=== PATIENT | female | born 1970 | race Caucasian/White ===

== ENCOUNTER 2018-01-17 11:50 | Observation (INO) ==
[2018-01-17] MEDS ORDERED: 0.9 % Sodium Chloride 1,000 ML ONE (12:34)
--- NOTE | 2018-01-17 12:34 | Emergency Department Note ---
Disposition Clinical Impression: Suicide attempt, Bradycardia Drug ingestion Qualifiers: Encounter type: initial encounter Injury intent: intentional self-harm Qualified Code(s): T50.902A - Poisoning by unspecified drugs, medicaments and biological substances, intentional self-harm, initial encounter Disposition: Admitted As Inpatient Condition: Good Referrals: NONE,PCP [Primary Care Provider] - Forms: ED Satisfaction Letter Time of Disposition: 16:36 General Adult HPI - General Chief complaint: ED Psychiatric Symptoms Stated complaint: SI/OD Time Seen by Provider: 01/17/18 11:59 - History of Present Illness Pain Scale: 0 - Related Data Home Medications Medication Instructions Recorded Confirmed Atorvastatin [Lipitor] 40 mg PO HS 01/17/18 01/17/18 Fenofibrate [Tricor] 54 mg PO DAILY 01/17/18 01/17/18 HydrOXYzine 10 mg PO BID PRN 01/17/18 01/17/18 Omeprazole [PriLOSEC] 40 mg PO DAILY 01/17/18 01/17/18 Pantoprazole Sodium [Protonix] 40 mg PO BID 01/17/18 01/17/18 Polyethylene Glycol 3350 [MiraLAX 17 gm PO DAILY PRN 01/17/18 01/17/18 bowel prep] Tizanidine HCl 4 mg PO BID PRN 01/17/18 01/17/18 Allergies Allergy/AdvReac Type Severity Reaction Status Date / Time No Known Allergies Allergy Verified 01/17/18 13:53 Past Medical History - Past Medical History Medical history: Reports: arthritis, GERD, hyperlipidemia, other Psychiatric history: Reports: anxiety, depression [employer]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 - Social History Smoking Status: Current every day smoker Smokeless Tobacco Status: No Alcohol use: Reports: occasionally Drug use: Reports: none Course Vital Signs Temperature 99.1 F 01/17/18 11:54 Pulse Rate 47 01/17/18 11:54 Respiratory Rate 16 01/17/18 11:54 Blood Pressure 133/61 01/17/18 11:54 O2 Sat by Pulse Oximetry 94 01/17/18 11:54 Temperature 99.1 F 01/17/18 12:24 Pulse Rate 46 01/17/18 15:22 Respiratory Rate 16 01/17/18 15:22 Blood Pressure 80/40 01/17/18 15:22 O2 Sat by Pulse Oximetry 100 01/17/18 15:22 Oxygen Delivery Oxygen Delivery Oximizer Medical Decision Making - Lab Data Result diagrams: 01/17/18 12:58 01/17/18 12:58 Lab Results 01/17/18 01/17/18 01/17/18 Range/Units 12:39 12:58 12:58 WBC 10.8 (4.3-11.1) K/mcL RBC 4.62 (3.82-4.97) M/mcL Hgb 13.8 (11.5-15.4) g/dL Hct 41.2 (35.3-44.9) % MCV 89.2 (83.0-100.0) fL MCH 29.9 (28.0-33.3) pg MCHC 33.5 (31.6-35.5) g/dL RDW 12.5 (11.5-14.5) % Plt Count 278 (140-400) K/mcL MPV 10.5 (9.4-12.4) fL Immature Gran % 0.4 (0-4) % Seg Neutrophils % 71.6 % Lymphocytes % 23.3 % Monocytes % 3.8 % Eosinophils % 0.4 % Basophils % 0.5 % Neutrophils # 7.7 (1.6-8.9) K/mcL Lymphocytes # 2.5 (0.6-4.6) K/mcL Monocytes # 0.4 (0.0-1.3) K/mcL Eosinophils # 0.0 (0.0-0.6) K/mcL Basophils # 0.1 (0.0-0.2) K/mcL Sodium 136 (136-145) mEq/L Potassium 3.5 (3.5-5.1) mEq/L Chloride 105 (98-107) mEq/L Carbon Dioxide 21 L (23-29) mEq/L BUN 9 (6-20) mg/dL Creatinine 0.95 (0.60-1.20) mg/dL Est GFR ( Amer) > 60 (> 60) Est GFR (Non-Af Amer) > 60 (> 60) BUN/Creatinine Ratio 9 (6-26) Glucose 302 H (70-105) mg/dL Calculated Osmolality 292 (280-300) Calcium 9.2 (8.6-10.3) mg/dL Total Bilirubin 0.5 (0.3-1.0) mg/dL Direct Bilirubin 0.2 (0.0-0.2) mg/dL Indirect Bilirubin 0.3 (0.0-1.2) mg/dL AST 13 (13-39) Units/L ALT 11 (7-52) Units/L Alkaline Phosphatase 87 (34-104) Units/L Ammonia (16-53) mcmol/L Serum Total Protein 6.7 (6.4-8.9) g/dL Albumin 4.0 (3.5-5.7) g/dL Globulin 2.7 (2.4-3.5) g/dL Albumin/Globulin Ratio 1.5 (1.1-2.2) TSH 2.081 (0.340-5.600) mcIU/mL Urine Color (Yellow) Urine Clarity (Clear) Urine pH (5.0-8.0) pH Units Ur Specific [place] (1.010-1.025) Urine Protein (Neg-Trace) mg/dL Urine Glucose (UA) (Normal) mg/dL Urine Ketones (Negative) mg/dL Urine Blood (Negative) Urine Nitrite (Negative) Urine Bilirubin (Negative) Urine Urobilinogen (Normal) mg/dL Ur Leukocyte Esterase (Negative) Urine Microscopic RBC (0-3) per hpf Urine Microscopic WBC (0-3) per hpf Urine Bacteria (None-Few) per hpf Ur Culture Indicated? (NO) Urine Test (Negative) Salicylates < 2.5 L (15.0-30.0) mg/dL Urine Opiates Screen Negative (Jmlqwh=411) ng/mL Acetaminophen < 10 L (10-20) mcg/mL Ur Barbiturates Screen Negative (Cfftmd=144) ng/mL Ur Phencyclidine Scrn Negative (Cutoff=25) ng/mL Ur Amphetamines Screen Negative (Udjxbq=2264) ng/mL U Benzodiazepines Scrn Negative (Vpkswp=726) ng/mL Urine Cocaine Screen Negative (Cutoff= 300) ng/mL U Marijuana (THC) Screen Negative (Cutoff = 50) ng/mL Ur Drug Screen Interp See Below Ethyl Alcohol < 10 (Less than 10) mg/dL 01/17/18 01/17/18 01/17/18 Range/Units 12:58 13:34 13:34 WBC (4.3-11.1) K/mcL RBC (3.82-4.97) M/mcL Hgb (11.5-15.4) g/dL Hct (35.3-44.9) % MCV (83.0-100.0) fL MCH (28.0-33.3) pg MCHC (31.6-35.5) g/dL RDW (11.5-14.5) % Plt Count (140-400) K/mcL MPV (9.4-12.4) fL Immature Gran % (0-4) % Seg Neutrophils % % Lymphocytes % % Monocytes % % Eosinophils % % Basophils % % Neutrophils # (1.6-8.9) K/mcL Lymphocytes # (0.6-4.6) K/mcL Monocytes # (0.0-1.3) K/mcL Eosinophils # (0.0-0.6) K/mcL Basophils # (0.0-0.2) K/mcL Sodium (136-145) mEq/L Potassium (3.5-5.1) mEq/L Chloride (98-107) mEq/L Carbon Dioxide (23-29) mEq/L BUN (6-20) mg/dL Creatinine (0.60-1.20) mg/dL Est GFR ( Amer) (> 60) Est GFR (Non-Af Amer) (> 60) BUN/Creatinine Ratio (6-26) Glucose (70-105) mg/dL Calculated Osmolality (280-300) Calcium (8.6-10.3) mg/dL Total Bilirubin (0.3-1.0) mg/dL Direct Bilirubin (0.0-0.2) mg/dL Indirect Bilirubin (0.0-1.2) mg/dL AST (13-39) Units/L ALT (7-52) Units/L Alkaline Phosphatase (34-104) Units/L Ammonia 48 (16-53) mcmol/L Serum Total Protein (6.4-8.9) g/dL Albumin (3.5-5.7) g/dL Globulin (2.4-3.5) g/dL Albumin/Globulin Ratio (1.1-2.2) TSH (0.340-5.600) mcIU/mL Urine Color Dark Yellow (Yellow) Urine Clarity Cloudy A (Clear) Urine pH 5.5 (5.0-8.0) pH Units Ur Specific [place] 1.023 (1.010-1.025) Urine Protein 100 H (Neg-Trace) mg/dL Urine Glucose (UA) 250 H (Normal) mg/dL Urine Ketones Trace H (Negative) mg/dL Urine Blood Negative (Negative) Urine Nitrite Negative (Negative) Urine Bilirubin Small H (Negative) Urine Urobilinogen Normal (Normal) mg/dL Ur Leukocyte Esterase Trace H (Negative) Urine Microscopic RBC 0-3 (0-3) per hpf Urine Microscopic WBC 0-3 (0-3) per hpf Urine Bacteria Few (None-Few) per hpf Ur Culture Indicated? YES A (NO) Urine Test Negative (Negative) Salicylates (15.0-30.0) mg/dL Urine Opiates Screen (Kwdygj=163) ng/mL Acetaminophen (10-20) mcg/mL Ur Barbiturates Screen (Agjixl=323) ng/mL Ur Phencyclidine Scrn (Cutoff=25) ng/mL Ur Amphetamines Screen (Trlnop=8752) ng/mL U Benzodiazepines Scrn (Hlgarf=813) ng/mL Urine Cocaine Screen (Cutoff= 300) ng/mL U Marijuana (THC) Screen (Cutoff = 50) ng/mL Ur Drug Screen Interp Ethyl Alcohol (Less than 10) mg/dL Attestation Statement - Attestation Attestation: I, Antwan Staples DO, examined this patient [id number] and my medical decision-making was reviewed with Dr. Raymond Cali, Resident Physician. I agree with the documented findings, disposition and treatment plan as described except to the extent set forth below. Please see my progress notes for details. 47-year-old female presents emergency room with intentional overdose. Patient took a handful of her home medications. Medication list was collected and she is currently on fluoxetine Percocet and Zanaflex. She otherwise takes multivitamins. On arrival here her heart rate is in the 40s to 50s she wakes up easily but is somnolent. Pupils are pinpoint. She denies any other issues. She does disclose that she did the medication to attempt to kill herself. She has had this several times in the past. She denies any other issues this point. Head is atraumatic pupils are pinpoint but reactive extracted muscles appear to be intact she is speaking coherently but is slow to respond. Oropharynx is patent lungs are clear heart is regular but bradycardic. Abdomen is soft. No visible signs of trauma or injury to the extremities she does not have any visible signs of track vitale or other injury or etiology at this point. Medical evaluation will be completed with EKG chest x-ray KUB CBC chemistry along with urine drug screen Tylenol level aspirin level. Patient will most likely be admitted secondary to medical clearance. See detailed documentation of the physical exam, medical intervention, medical decision- making and disposition the resident physician's note. Poison control will be contacted 1500 Patient has slowly become bradycardic and hypotensive. 2 units of fluid were given. Patient will be provided with 0.4 of Narcan as well as 2 g of glucagon and 1 g of calcium. Patient has been admitted to the hospitalist but her blood pressure has waxed and waned. She still wakes up easily and converses without any issue. No other acute etiology noted at this time. Patient is stable. Admission process will be established hospitalist Dr. Kern was contacted and reviewed the case with him he has no other recommendations or concerns at this time. 1625 Patient has remained bradycardic and hypotensive after Narcan, glucagon, calcium has been given. A second liter of fluids was infused. Patient was started on maintenance fluid at this time. She has maintain the map between 55 and 65 throughout the entire treatment course. She still wakes up easily and converses with the family at the bedside. Patient will be admitted for continuation of management and observation.
[2018-01-17 13:01] LABS: Amphetamine Screen,Urine Negative ng/mL (Cutoff=1000); Barbiturate Screen,Urine Negative ng/mL (Cutoff=200); Benzodiazepines Screen,Urine Negative ng/mL (Cutoff=200); Cannabinoid Screen,Urine Negative ng/mL (Cutoff = 50); Cocaine Screen,Urine Negative ng/mL (Cutoff= 300); Opiate Screen,Urine Negative ng/mL (Cutoff=300); Phencyclidine Screen,Urine Negative ng/mL (Cutoff=25)
--- NOTE | 2018-01-17 13:05 | Emergency Department Note ---
Disposition Clinical Impression: Suicide attempt, Bradycardia Drug ingestion Qualifiers: Encounter type: initial encounter Injury intent: intentional self-harm Qualified Code(s): T50.902A - Poisoning by unspecified drugs, medicaments and biological substances, intentional self-harm, initial encounter Disposition: Admitted As Inpatient Condition: Good Psych HPI - General Chief Complaint: ED Psychiatric Symptoms Stated Complaint: SI/OD Time Seen by Provider: 01/17/18 11:59 Source: patient, family Limitations: altered mental status Nursing Notes Reviewed: Yes Vital Signs Reviewed: Yes - History of Present Illness HPI Narrative: 47-year-old female history of anxiety, depression, hyperlipidemia and GERD who presents to the ER with complaints of intentional ingestion and suicide. History is obtained from froylan. Reports roughly 2 hours prior to arrival he came to her house and found her altered and admitted that she took pills. She did this in an attempt to take the pain away from her divorce. Denies any other ingestions but is unsure exactly what she took. She took a cup full of all of her medications. No seizure-like activity. No vomiting. No chest pain or shortness of breath as well as abdominal pain here. Pt complaint: other Onset (ago): hour(s) History of similar episodes: No Improves with: none Worsens with: none Alleged intoxication: No Associated Psychiatric Symptoms: depression, suicidal ideation Associated symptoms: Reports: denies other symptoms Traumatic symptoms: denies traumatic injury Treatments prior to arrival: none - Related Data Home Medications Medication Instructions Recorded Confirmed Atorvastatin [Lipitor] 40 mg PO HS 01/17/18 01/17/18 Fenofibrate [Tricor] 54 mg PO DAILY 01/17/18 01/17/18 HydrOXYzine 10 mg PO BID PRN 01/17/18 01/17/18 Omeprazole [PriLOSEC] 40 mg PO DAILY 01/17/18 01/17/18 Pantoprazole Sodium [Protonix] 40 mg PO BID 01/17/18 01/17/18 Polyethylene Glycol 3350 [MiraLAX 17 gm PO DAILY PRN 01/17/18 01/17/18 bowel prep] Tizanidine HCl 4 mg PO BID PRN 01/17/18 01/17/18 Allergies Allergy/AdvReac Type Severity Reaction Status Date / Time No Known Allergies Allergy Verified 01/17/18 13:53 All systems ED: reviewed and negative except as stated. Cardiovascular: Denies: chest pain Respiratory: Denies: dyspnea Gastrointestinal: Denies: abdominal pain, nausea, vomiting Psychiatric: Reports: suicidal thoughts Past Medical History - Past Medical History Attestation: Yes The following information was validated with the patient. 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 - Social History Smoking Status: Current every day smoker Smokeless Tobacco Status: No Alcohol use: Reports: occasionally Drug use: Reports: none Physical Exam - General Limitations: altered mental status General appearance: lethargic - Head Head exam: atraumatic, normocephalic, normal inspection - Eye Eye exam: Present: normal appearance, miosis - ENT ENT exam: normal exam - Neck Neck exam: Present: normal inspection - Chest Chest inspection: Present: normal inspection, symmetric chest wall rise - Respiratory Respiratory exam: Present: normal lung sounds bilaterally - Cardiovascular Cardiovascular exam: Present: normal rhythm, bradycardia, normal heart sounds - Abdominal Exam Abdominal exam: Present: soft, Non-Tender. Absent: tenderness, distention, rigidity - Extremities Exam Extremities exam: Present: normal inspection, full ROM - Expanded Upper Extremity Exam Shoulder exam: Present: normal inspection, full ROM Arm exam: Present: normal inspection, full ROM Elbow exam: Present: normal inspection, full ROM Forearm/Wrist exam: Present: normal inspection, full ROM Hand exam: Present: normal inspection, full ROM - Expanded Lower Extremity Exam Hip/Pelvis exam: Present: normal inspection, full ROM Upper leg exam: Present: normal inspection, full ROM Knee exam: Present: normal inspection, full ROM Lower leg exam: Present: normal inspection, full ROM Ankle exam: Present: normal inspection, full ROM Foot/toe exam: Present: normal inspection, full ROM - Neurological Exam Neurological exam: Present: other (Somnolent. Arousable to verbal stimuli. Follows commands.) - Psychiatric Psychiatric exam: Present: suicidal ideation - Skin Skin exam: Present: warm, dry Course Course Narrative: Patient seen and examined. Vital signs reviewed. Plan for CT imaging of the head, EKG, chest x-ray, labs, discussion with poison control. She is bradycardic here but otherwise hemodynamically stable. - Reevaluation(s) Reevaluation #1: Patient did have an episode of hypotension. IV fluid bolus. Second liter ordered. Reevaluation #2: Remains bradycardic. Poison control recommended calcium and glucagon. Reevaluation #3: Continues to have a waxing and waning blood pressure. - Consultations Consultation #1: I spoke with poison control concerning this patient. Discussed her history exam and possible ingestions. Recommend medical management at this time. Atropine if she becomes bradycardic and hypotensive. Vital Signs Temperature 99.1 F 01/17/18 11:54 Pulse Rate 47 01/17/18 11:54 Respiratory Rate 16 01/17/18 11:54 Blood Pressure 133/61 01/17/18 11:54 O2 Sat by Pulse Oximetry 94 01/17/18 11:54 Temperature 99.1 F 01/17/18 12:24 Pulse Rate 56 01/17/18 16:37 Respiratory Rate 15 01/17/18 16:37 Blood Pressure 75/49 01/17/18 16:37 O2 Sat by Pulse Oximetry 98 01/17/18 16:37 Oxygen Delivery Oxygen Delivery Simple Mask Psych - MDM Narrative Medical decision making narrative: 47-year-old female presents with intentional ingestion. [place] slipped. Polysubstance ingestion. Presented bradycardic. EKG is sinus with normal intervals. CT head negative. Imaging otherwise unremarkable. Labs with no acute derangements. Urine drug screen negative. Admitted to the hospitalist service. Poison control did recommend to give calcium and glucagon in the event this could be a beta kaitlyn overdose. Her blood pressure has been variable. She arouses to verbal stimuli. She is admitted to the hospitalist service with eventual psychiatric consultation. - Lab Data Lab results reviewed: Yes I reviewed the patient's lab results. Result diagrams: 01/17/18 12:58 01/17/18 12:58 Lab Results 01/17/18 01/17/18 01/17/18 Range/Units 12:39 12:58 12:58 WBC 10.8 (4.3-11.1) K/mcL RBC 4.62 (3.82-4.97) M/mcL Hgb 13.8 (11.5-15.4) g/dL Hct 41.2 (35.3-44.9) % MCV 89.2 (83.0-100.0) fL MCH 29.9 (28.0-33.3) pg MCHC 33.5 (31.6-35.5) g/dL RDW 12.5 (11.5-14.5) % Plt Count 278 (140-400) K/mcL MPV 10.5 (9.4-12.4) fL Immature Gran % 0.4 (0-4) % Seg Neutrophils % 71.6 % Lymphocytes % 23.3 % Monocytes % 3.8 % Eosinophils % 0.4 % Basophils % 0.5 % Neutrophils # 7.7 (1.6-8.9) K/mcL Lymphocytes # 2.5 (0.6-4.6) K/mcL Monocytes # 0.4 (0.0-1.3) K/mcL Eosinophils # 0.0 (0.0-0.6) K/mcL Basophils # 0.1 (0.0-0.2) K/mcL Sodium 136 (136-145) mEq/L Potassium 3.5 (3.5-5.1) mEq/L Chloride 105 (98-107) mEq/L Carbon Dioxide 21 L (23-29) mEq/L BUN 9 (6-20) mg/dL Creatinine 0.95 (0.60-1.20) mg/dL Est GFR ( Amer) > 60 (> 60) Est GFR (Non-Af Amer) > 60 (> 60) BUN/Creatinine Ratio 9 (6-26) Glucose 302 H (70-105) mg/dL Calculated Osmolality 292 (280-300) Calcium 9.2 (8.6-10.3) mg/dL Total Bilirubin 0.5 (0.3-1.0) mg/dL Direct Bilirubin 0.2 (0.0-0.2) mg/dL Indirect Bilirubin 0.3 (0.0-1.2) mg/dL AST 13 (13-39) Units/L ALT 11 (7-52) Units/L Alkaline Phosphatase 87 (34-104) Units/L Ammonia (16-53) mcmol/L Serum Total Protein 6.7 (6.4-8.9) g/dL Albumin 4.0 (3.5-5.7) g/dL Globulin 2.7 (2.4-3.5) g/dL Albumin/Globulin Ratio 1.5 (1.1-2.2) TSH 2.081 (0.340-5.600) mcIU/mL Urine Color (Yellow) Urine Clarity (Clear) Urine pH (5.0-8.0) pH Units Ur Specific [place] (1.010-1.025) Urine Protein (Neg-Trace) mg/dL Urine Glucose (UA) (Normal) mg/dL Urine Ketones (Negative) mg/dL Urine Blood (Negative) Urine Nitrite (Negative) Urine Bilirubin (Negative) Urine Urobilinogen (Normal) mg/dL Ur Leukocyte Esterase (Negative) Urine Microscopic RBC (0-3) per hpf Urine Microscopic WBC (0-3) per hpf Urine Bacteria (None-Few) per hpf Ur Culture Indicated? (NO) Urine Test (Negative) Salicylates < 2.5 L (15.0-30.0) mg/dL Urine Opiates Screen Negative (Mamdlj=024) ng/mL Acetaminophen < 10 L (10-20) mcg/mL Ur Barbiturates Screen Negative (Arkxnk=649) ng/mL Ur Phencyclidine Scrn Negative (Cutoff=25) ng/mL Ur Amphetamines Screen Negative (Yharte=3686) ng/mL U Benzodiazepines Scrn Negative (Cxdagv=755) ng/mL Urine Cocaine Screen Negative (Cutoff= 300) ng/mL U Marijuana (THC) Screen Negative (Cutoff = 50) ng/mL Ur Drug Screen Interp See Below Ethyl Alcohol < 10 (Less than 10) mg/dL 01/17/18 01/17/18 01/17/18 Range/Units 12:58 13:34 13:34 WBC (4.3-11.1) K/mcL RBC (3.82-4.97) M/mcL Hgb (11.5-15.4) g/dL Hct (35.3-44.9) % MCV (83.0-100.0) fL MCH (28.0-33.3) pg MCHC (31.6-35.5) g/dL RDW (11.5-14.5) % Plt Count (140-400) K/mcL MPV (9.4-12.4) fL Immature Gran % (0-4) % Seg Neutrophils % % Lymphocytes % % Monocytes % % Eosinophils % % Basophils % % Neutrophils # (1.6-8.9) K/mcL Lymphocytes # (0.6-4.6) K/mcL Monocytes # (0.0-1.3) K/mcL Eosinophils # (0.0-0.6) K/mcL Basophils # (0.0-0.2) K/mcL Sodium (136-145) mEq/L Potassium (3.5-5.1) mEq/L Chloride (98-107) mEq/L Carbon Dioxide (23-29) mEq/L BUN (6-20) mg/dL Creatinine (0.60-1.20) mg/dL Est GFR ( Amer) (> 60) Est GFR (Non-Af Amer) (> 60) BUN/Creatinine Ratio (6-26) Glucose (70-105) mg/dL Calculated Osmolality (280-300) Calcium (8.6-10.3) mg/dL Total Bilirubin (0.3-1.0) mg/dL Direct Bilirubin (0.0-0.2) mg/dL Indirect Bilirubin (0.0-1.2) mg/dL AST (13-39) Units/L ALT (7-52) Units/L Alkaline Phosphatase (34-104) Units/L Ammonia 48 (16-53) mcmol/L Serum Total Protein (6.4-8.9) g/dL Albumin (3.5-5.7) g/dL Globulin (2.4-3.5) g/dL Albumin/Globulin Ratio (1.1-2.2) TSH (0.340-5.600) mcIU/mL Urine Color Dark Yellow (Yellow) Urine Clarity Cloudy A (Clear) Urine pH 5.5 (5.0-8.0) pH Units Ur Specific [place] 1.023 (1.010-1.025) Urine Protein 100 H (Neg-Trace) mg/dL Urine Glucose (UA) 250 H (Normal) mg/dL Urine Ketones Trace H (Negative) mg/dL Urine Blood Negative (Negative) Urine Nitrite Negative (Negative) Urine Bilirubin Small H (Negative) Urine Urobilinogen Normal (Normal) mg/dL Ur Leukocyte Esterase Trace H (Negative) Urine Microscopic RBC 0-3 (0-3) per hpf Urine Microscopic WBC 0-3 (0-3) per hpf Urine Bacteria Few (None-Few) per hpf Ur Culture Indicated? YES A (NO) Urine Test Negative (Negative) Salicylates (15.0-30.0) mg/dL Urine Opiates Screen (Frjsjf=658) ng/mL Acetaminophen (10-20) mcg/mL Ur Barbiturates Screen (Nprbqv=057) ng/mL Ur Phencyclidine Scrn (Cutoff=25) ng/mL Ur Amphetamines Screen (Wvmhkm=0716) ng/mL U Benzodiazepines Scrn (Vrkabc=468) ng/mL Urine Cocaine Screen (Cutoff= 300) ng/mL U Marijuana (THC) Screen (Cutoff = 50) ng/mL Ur Drug Screen Interp Ethyl Alcohol (Less than 10) mg/dL - Radiology Data Radiology results reviewed: Yes I reviewed the patient's radiology results. Chest X-Ray 01/17/18 12:14 IMPRESSION: No acute process. D/ / Tim Roberson MD / Tim Roberson MD Interpreting Provider: Tim Roberson MD X-Ray 01/17/18 12:14 IMPRESSION: No evidence of bowel obstruction. No evidence of radiopaque foreign bodies. D/ / Tim Roberson MD / Tim Roberson MD Interpreting Provider: Tim Roberson MD Head CT 01/17/18 12:35 IMPRESSION: No acute intracranial abnormality. D/ / Wolf Rey MD / Wolf Rey MD Interpreting Provider: Wolf Rey MD - EKG Data EKG attestation: Yes I reviewed and interpreted this EKG. EKG results narrative: EKG demonstrates sinus bradycardia rate 44. Normal axis. Normal intervals. Normal R-wave progression. No gross ST elevations or depressions. No acute ischemic findings. Psychiatric Medical Clearance - Medical Clearance Checklist Medical History: No Social History Section defined Current Vitals: Last Vital Signs Temp 99.1 F 01/17/18 12:24 Pulse 56 01/17/18 16:37 Resp 15 01/17/18 16:37 BP 75/49 01/17/18 16:37 Pulse Ox 98 01/17/18 16:37 Psychiatric Lab Panel: Drug Levels and Toxicity 01/17/18 01/17/18 12:39 12:58 Urine Opiates Screen Negative Acetaminophen < 10 L Ur Barbiturates Screen Negative Ur Phencyclidine Scrn Negative Ur Amphetamines Screen Negative U Benzodiazepines Scrn Negative Urine Cocaine Screen Negative U Marijuana (THC) Screen Negative Ethyl Alcohol < 10 Abnormal Labs: Abnormal lab results Carbon Dioxide 21 mEq/L (23-29) L 01/17/18 12:58 Glucose 302 mg/dL (70-105) H 01/17/18 12:58 Urine Clarity Cloudy (Clear) A 01/17/18 13:34 Urine Protein 100 mg/dL (Neg-Trace) H 01/17/18 13:34 Urine Glucose (UA) 250 mg/dL (Normal) H 01/17/18 13:34 Urine Ketones Trace mg/dL (Negative) H 01/17/18 13:34 Urine Bilirubin Small (Negative) H 01/17/18 13:34 Ur Leukocyte Esterase Trace (Negative) H 01/17/18 13:34 Ur Culture Indicated? YES (NO) A 01/17/18 13:34 Salicylates < 2.5 mg/dL (15.0-30.0) L 01/17/18 12:58 Acetaminophen < 10 mcg/mL (10-20) L 01/17/18 12:58 S.B.A.R. - S.B.A.R. Situation: Demographics, MOA Background: Presenting Complaint, Relevant PMH, Meds, & Allergies Assessment: Vital Signs, Course and respsone to treatment, Exam Concerns, Patient/Family Expectation, Pertinant Lab Results Recommendation: Barrier(s) to disposition, Recommendation based on pending studies, treatments, or consults S.B.A.R. Report Given to: Dr. Erlin Don.[email or web address].RLuz Repor Time: 15:22 Attestation Statement - Attestation Attestation: I, Antwan Staples DO, examined this patient [id number] and my medical decision-making was reviewed with Dr. Raymond Cali, Resident Physician. I agree with the documented findings, disposition and treatment plan as described except to the extent set forth below. Please see my progress notes for details.
[2018-01-17] MEDS ORDERED: 0.9 % Sodium Chloride 1,000 ML IVC ONE ×3 (13:27→18:07)
[2018-01-17 13:48] LABS: Basophils # 0.1 K/mcL (0.0-0.2); Basophils % 0.5 %; Eosinophils % 0.4 %; Hematocrit 41.2 % (35.3-44.9); Hemoglobin 13.8 g/dL (11.5-15.4); Immature Granulocytes % 0.4 % (0-4); Lymphocytes # 2.5 K/mcL (0.6-4.6); Lymphocytes % 23.3 %; Mean Corpuscular HGB Conc 33.5 g/dL (31.6-35.5); Mean Corpuscular Hemoglobin 29.9 pg (28.0-33.3); Mean Corpuscular Volume 89.2 fL (83.0-100.0); Mean Platelet Volume 10.5 fL (9.4-12.4); Monocytes # 0.4 K/mcL (0.0-1.3); Monocytes % 3.8 %; Neutrophils # 7.7 K/mcL (1.6-8.9); Platelet Count 278 K/mcL (140-400); Red Blood Count 4.62 M/mcL (3.82-4.97); Red Cell Distribution Width 12.5 % (11.5-14.5); Segmented Neutrophils % 71.6 %
[2018-01-17 13:49] LABS: Bilirubin,Urine Small (Negative); Blood,Urine Negative (Negative); Clarity,Urine Cloudy (Clear); Color,Urine Dark Yellow (Yellow); Glucose,Urine (UA) 250 mg/dL (Normal); Ketones,Urine Trace mg/dL (Negative); Leukocyte Esterase,Urine Trace (Negative); Nitrite,Urine Negative (Negative); PH,Urine 5.5 pH Units (5.0-8.0); Protein,Urine 100 mg/dL (Neg-Trace); Specific Gravity,Urine 1.023 (1.010-1.025); Urobilinogen,Urine Normal (Normal)
[2018-01-17 13:50] LABS: Bacteria,Urine Few per hpf (None-Few); RBC,Urine 0-3 per hpf (0-3); WBC,Urine 0-3 per hpf (0-3)
[2018-01-17 14:02] LABS: Acetaminophen < 10 mcg/mL (10-20); Alanine Aminotransferase 11 Units/L (7-52); Albumin/Globulin Ratio 1.5 (1.1-2.2); Alkaline Phosphatase 87 Units/L (34-104); Aspartate Amino Transferase 13 Units/L (13-39); BUN/Creatinine Ratio 9 (6-26); Bilirubin,Direct 0.2 mg/dL (0.0-0.2); Bilirubin,Indirect 0.3 mg/dL (0.0-1.2); Bilirubin,Total 0.5 mg/dL (0.3-1.0); Blood Urea Nitrogen 9 mg/dL (6-20); Calcium 9.2 mg/dL (8.6-10.3); Carbon Dioxide 21 mEq/L (23-29); Chloride 105 mEq/L (98-107); Ethanol < 10 mg/dL (Less than 10); Globulin 2.7 g/dL (2.4-3.5); Glucose 302 mg/dL (70-105); Osmolality,Calculated 292 (280-300); Potassium 3.5 mEq/L (3.5-5.1); Salicylate < 2.5 mg/dL (15.0-30.0); Sodium 136 mEq/L (136-145); Total Protein 6.7 g/dL (6.4-8.9); eGFR For Non-African Americans > 60 (> 60)
[2018-01-17 14:13] LABS: Thyroid Stimulating Hormone 2.081 mcIU/mL (0.340-5.600)
[2018-01-17] MEDS ORDERED: Naloxone 0.4 MG/ML INJ IVP ONE (15:21)
[2018-01-17] MEDS ORDERED: 0.9 % Sodium Chloride 1,000 ML IVC SCH ×2 (16:45→18:15)
--- NOTE | 2018-01-17 18:20 | Internal Med History&Physical ---
Date of Encounter: 01/17/18 Time of Encounter: 18:09 Internal Medicine - H&P: HPI Chief complaint: Drug overdose Admitted From: Home Plans for Post Hospital Care: Home History of present illness: Ms. Gross is a 47 year old female past medical hx of anxiety deprsseion HLD GERD who presented to the ED after an intentional ingestion and suicide . Patient is groggy information obtained from staff patient and medical reports. Approx 2 hours to arrival of the ED the patient was found altered by her son. She took some pills in attempt to take away pain from a recent breakup with her significant other . She had pills around her and the son brought them with him for identification, however unsure of what and how many pills she ingested . On presentation to the ED she became hypotensive and bradycardic. She was given IVF Poison control notified advised to give calcium gluconate in case she ingested BB. Pharmacy identified pills brought to the ED : Hydroxyzine, Zanaflex , multivitamin, Tricor, Dicyclomine, Duloxetine, Omeprazole- She was seen by Psych in the ED however she ids very groggy. She will be evaluated once she medically stable. We will admit and closely monitor overnight. Currently she arouses to verbal stimuli oriented X3 She currently denies any suicidal ideations at this time. We will continue suicide observation. I reviewed this case with DR Kern who agrees with plan. Past Med Surg Social Fam HX - Past Medical History Medical history: arthritis, GERD, hyperlipidemia, other Additional medical history: hernia Psychiatric history: anxiety, depression - Past Surgical History Additional surgical history: left ankle. lower back. breast reduction. right carpal tunnel. EGD-ring in throat - Social History Smoking Status: Current every day smoker Smokeless Tobacco Status: No Alcohol use: occasionally Drug use: none - Family History Mother Living Status: Hx Family Cardiac Disorders: Yes Internal Medicine - H&P: Meds Atorvastatin [Lipitor] 40 mg PO HS 01/17/18 [History] Fenofibrate [Tricor] 54 mg PO DAILY 01/17/18 [History] HydrOXYzine 10 mg PO BID PRN 01/17/18 [History] Omeprazole [PriLOSEC] 40 mg PO DAILY 01/17/18 [History] Pantoprazole Sodium [Protonix] 40 mg PO BID 01/17/18 [History] Polyethylene Glycol 3350 [MiraLAX bowel prep] 17 gm PO DAILY PRN 01/17/18 [ History] Tizanidine HCl 4 mg PO BID PRN 01/17/18 [History] 3 Allergy/AdvReac Type Severity Reaction Status Date / Time No Known Allergies Allergy Verified 01/17/18 13:53 All Systems PM: A 10-system review of systems was performed and is negative for pertinent findings except as documented above in the HPI. - Constitutional Constitutional: no chills, no fever(s), no night sweats - EENT Eyes: no change in vision, no discharge, no pain, no photophobia Ears: no ear discharge, no ear pain, no tinnitus Nose, mouth and throat: no dysphagia, no nasal discharge, no neck pain, no sore throat - Cardiovascular Cardiovascular ROS IM: no chest pain, no diaphoresis, no dyspnea, no lightheadedness, no palpitations, no syncope - Respiratory Respiratory: no cough, no dyspnea, no wheezing, no excessive phlegm production - Gastrointestinal Gastrointestinal: abdominal pain, no diarrhea, no hematemesis, no hematochezia, no melena, no nausea, no vomiting - Genitourinary Genitourinary: no change in urinary stream, no dysuria, no flank pain, no hematuria - Musculoskeletal Musculoskeletal ROS IM: no numbness, no tingling - Integumentary Integumentary IM: no rash, no unusual bruising - Neurological Neurological ROS: no confusion, no convulsions, no focal weakness, no numbness, no tingling, no tremor(s) - Hematologic/Lymphatic Hematologic/Lymphatic: no easy bruising - Constitutional Vitals: Temp Pulse Resp BP Pulse Ox 97.1 F L 59 20 82/39 100 01/17/18 17:00 01/17/18 17:01 01/17/18 17:00 01/17/18 17:00 01/17/18 17:00 General appearance: Present: A&O X 3 Exam: Groggy - Head Head exam: Present: atraumatic, normocephalic - Eye Eye exam: Present: PERRL, conjuntiva pink, sclera anicteric Pupils: Present: PERRL - Neck Neck exam general surgery: Present: supple, trachea midline. Absent: lymphadenopathy - Respiratory Respiratory exam: Present: CTAB. Absent: accessory muscle use, rales, rhonchi, wheezes - Cardiovascular Cardiovascular exam: Present: RRR, +S1, +S2. Absent: diastolic murmur, gallop, rubs, systolic murmur - GI/Abdominal GI/Abdominal exam: Present: normal bowel sounds, soft, no peritoneal signs. Absent: distended, tenderness - Extremities Exam Extremities exam: Present: warm, radial pulses palpable and symmetrical. Absent : calf tenderness, cyanotic, pedal edema - Neurological Exam Neurological exam: Present: CN II-XII intact, oriented X3, no focal deficits. Absent: pronater drift, facial droop, speech deficit - Skin Skin exam: Present: dry, intact Internal Med - H&P Results - Labs CBC & Chem 7: 01/17/18 12:58 01/17/18 12:58 - Diagnostic Studies Chest x-ray Additional comments: Chest X-Ray 01/17/18 12:14 IMPRESSION: No acute process. D/ / Tim Roberson MD / Tim Roberson MD Interpreting Provider: Tim Roberson MD X-Ray 01/17/18 12:14 IMPRESSION: No evidence of bowel obstruction. No evidence of radiopaque foreign bodies. D/ / Tim Roberson MD / Tim Roberson MD Interpreting Provider: Tim Roberson MD Head CT 01/17/18 12:35 IMPRESSION: No acute intracranial abnormality. D/ / Wolf Rey MD / Wolf Rey MD Interpreting Provider: Wolf Rey MD - Assessment and plan (1) Bradycardia Current Visit: Yes Status: Acute Assessment and plan: Most likely rt drug overdose- will monitor closely At[place] for sustained bradycardia cont cardiac monitoring (2) Drug ingestion Current Visit: Yes Status: Acute Assessment and plan: 1Ingested unknown quantity of unknown drugs- pharmacy did identify the following Hydroxyzine, Zanaflex, multivitamin, Tricor, Dicyclomine, Duloxetine, Omeprazole- Poison control notified Cont cardiac monitoring monitor labs IVF monitor airway- cont O2 and titrate as needed Qualifiers: Encounter type: initial encounter Injury intent: intentional self-harm Qualified Code(s): T50.902A - Poisoning by unspecified drugs, medicaments and biological substances, intentional self-harm, initial encounter (3) Suicide attempt Current Visit: Yes Status: Acute Assessment and plan: 1 patient states that she "snapped " and took pills after expereincing a breakup with her significant other. She has had previous Suicide attempt approx 20 yrs ago. Con 06/01 observation -suicide obs consult psych once medically stable - Time Spent With Patient Total time spent is greater than 50% in coordination of care (as documented) at patient's floor/unit and/or counseling patient:
[2018-01-17] MEDS ORDERED: *HR* Atropine Sulfate 1 MG/10 ML SYRINGE IVP SCH (18:45)
[2018-01-17] MEDS: 0.9 % Sodium Chloride 1,000 ML IVC SCH (19:30)
[2018-01-17 21:51] LABS: Amphetamine Screen,Urine Negative ng/mL (Cutoff=1000); Barbiturate Screen,Urine Negative ng/mL (Cutoff=200); Benzodiazepines Screen,Urine Negative ng/mL (Cutoff=200); Cannabinoid Screen,Urine Negative ng/mL (Cutoff = 50); Cocaine Screen,Urine Negative ng/mL (Cutoff= 300); Opiate Screen,Urine Negative ng/mL (Cutoff=300); Phencyclidine Screen,Urine Negative ng/mL (Cutoff=25)
[2018-01-18] MEDS: 0.9 % Sodium Chloride 1,000 ML IVC SCH ×3 (05:58→17:41)
[2018-01-18 06:06] LABS: Basophils % 0.4 %; Eosinophils # 0.1 K/mcL (0.0-0.6); Eosinophils % 1.1 %; Hematocrit 37.4 % (35.3-44.9); Hemoglobin 12.3 g/dL (11.5-15.4); Immature Granulocytes % 0.5 % (0-4); Lymphocytes # 2.3 K/mcL (0.6-4.6); Lymphocytes % 31.2 %; Mean Corpuscular HGB Conc 32.9 g/dL (31.6-35.5); Mean Corpuscular Hemoglobin 30.1 pg (28.0-33.3); Mean Corpuscular Volume 91.4 fL (83.0-100.0); Mean Platelet Volume 10.6 fL (9.4-12.4); Monocytes # 0.5 K/mcL (0.0-1.3); Monocytes % 6.1 %; Neutrophils # 4.5 K/mcL (1.6-8.9); Platelet Count 197 K/mcL (140-400); Red Blood Count 4.09 M/mcL (3.82-4.97); Red Cell Distribution Width 12.5 % (11.5-14.5); Segmented Neutrophils % 60.7 %
[2018-01-18 06:26] LABS: BUN/Creatinine Ratio 10 (6-26); Blood Urea Nitrogen 8 mg/dL (6-20); Calcium 8.4 mg/dL (8.6-10.3); Carbon Dioxide 24 mEq/L (23-29); Chloride 117 mEq/L (98-107); Glucose 76 mg/dL (70-105); Osmolality,Calculated 293 (280-300); Potassium 3.5 mEq/L (3.5-5.1); Sodium 143 mEq/L (136-145); eGFR For Non-African Americans > 60 (> 60)
[2018-01-18] MEDS ORDERED: *HR* Atropine Sulfate 1 MG/10 ML SYRINGE IVP SCH (09:58)
--- NOTE | 2018-01-18 10:23 | Internal Med Progress Note ---
Hospitalist Progress Note - Encounter Date of Encounter: 01/18/18 Time of Encounter: 09:15 - Subjective Interval History: Patient without complaints; admits to intentional overdose with multiple meds in hopes of "ending the suffering", and expresses regret for her suicidal attempt. She denies any complaints presently. She is depressed due to recent break-up with fimelitae. She is hungry and agrees to treatment plan, psychiatry consultation. - Exam Vitals: Temp Pulse Resp BP Pulse Ox 98.3 F 84 20 148/91 98 01/18/18 07:00 01/18/18 08:00 01/18/18 08:00 01/18/18 08:00 01/18/18 08:00 Exam: General: NAD; alert, oriented x 3, appropriate, depressed HEENT: PERRLA; EOMI; no icterus; dry mucous membranes; neck supple Chest: CTA B; RRR; No MTR Abdomen: soft, NT; ND; NO HSMG; no masses; +BS Ext: no CCE; equal pulses; no calf tenderness; full ROM Neuro: A&O x3; no focal deficits Psych: depressed; denies current suicidal intent or plan; expresses regret for her actions Skin: warm/dry - Assessment and Plan (1) Drug ingestion Current Visit: Yes Status: Acute Assessment and Plan: 1. Appears to remain hemodynamically stable. 2. Will transfer out of ICU to a telemetry floor. 3. Monitor vitals, telemetry, and EKG. 4. Likely discharge tomorrow to inpatient psychiatry or home pending psychiatry consultation. 5. Begin regular diet. (2) Suicide attempt Current Visit: Yes Status: Acute Assessment and Plan: 1. Continue sitter and suicide precautions. 2. Consult psychiatry -- notified. 3. Possible psychiatry admission tomorrow if deemed appropriate per psychiatry. (3) Bradycardia Current Visit: Yes Status: Acute Assessment and Plan: 1. Resolved. 2. Continue monitoring on telemetry for another 24 hours. DVT Prophylaxis: Will add heparin SQ. - Time Spent with Patient Total time spent is greater than 50% in coordination of care (as documented) at patient's floor/unit and/or counseling patient: Internal Medicine: Result - Labs CBC & Chem 7: 01/18/18 05:40 01/18/18 05:40 Labs: Short CBC 08/20/18 Range/Units 05:40 WBC 7.4 (4.3-11.1) K/mcL Hgb 12.3 D (11.5-15.4) g/dL Hct 37.4 (35.3-44.9) % Plt Count 197 (140-400) K/mcL Neutrophils # 4.5 (1.6-8.9) K/mcL [facility] 01/18/18 05:40 Sodium 143 Potassium 3.5 Chloride 117 H Carbon Dioxide 24 BUN 8 Creatinine 0.80 Glucose 76 Calcium 8.4 L Consult Discharge Plan - Plan Referrals: NONE,PCP [Primary Care Provider] - (1) Drug ingestion Qualifiers: Encounter type: initial encounter Injury intent: intentional self-harm Qualified Code(s): T50.902A - Poisoning by unspecified drugs, medicaments and biological substances, intentional self-harm, initial encounter
[2018-01-18] MEDS: *HR* Heparin 5,000 UNIT/ML VIAL SQ SCH ×2 (11:04→17:33)
--- NOTE | 2018-01-18 15:32 | Electrocardiograph Report ---
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
[2018-01-18] MEDS: Nicotine 21 MG PATCH.TD24 TD SCH (19:17)
[2018-01-19] MEDS: 0.9 % Sodium Chloride 1,000 ML IVC SCH ×2 (05:30→15:59)
[2018-01-19] MEDS: *HR* Heparin 5,000 UNIT/ML VIAL SQ SCH ×2 (05:31→17:02)
[2018-01-19 05:43] LABS: Alanine Aminotransferase 13 Units/L (7-52); Albumin/Globulin Ratio 1.6 (1.1-2.2); Alkaline Phosphatase 80 Units/L (34-104); Aspartate Amino Transferase 13 Units/L (13-39); BUN/Creatinine Ratio 10 (6-26); Bilirubin,Total 0.2 mg/dL (0.3-1.0); Blood Urea Nitrogen 7 mg/dL (6-20); Calcium 9.3 mg/dL (8.6-10.3); Carbon Dioxide 26 mEq/L (23-29); Chloride 113 mEq/L (98-107); Globulin 2.5 g/dL (2.4-3.5); Glucose 93 mg/dL (70-105); Osmolality,Calculated 292 (280-300); Potassium 3.9 mEq/L (3.5-5.1); Sodium 142 mEq/L (136-145); Total Protein 6.5 g/dL (6.4-8.9); eGFR For Non-African Americans > 60 (> 60)
[2018-01-19] MEDS: Nicotine 21 MG PATCH.TD24 TD SCH (08:53)
[2018-01-19] MEDS ORDERED: Acetaminophen 325 MG TABLET PO PRN (11:05)
--- NOTE | 2018-01-19 16:04 | Consult Note ---
Date of Encounter: 01/19/18 Time of Encounter: 15:00 Assessment & Recommendation (1) Major depress dis, severe Current visit: Yes Status: Acute (2) Drug ingestion Current visit: Yes Status: Acute Qualifiers: Encounter type: initial encounter Injury intent: intentional self-harm Qualified Code(s): T50.902A - Poisoning by unspecified drugs, medicaments and biological substances, intentional self-harm, initial encounter (3) Suicide attempt Current visit: Yes Status: Acute History of Present Illness Patient: known to practice within the last 3 years Requesting Physician: Yoel Brennan MD History of present illness: Upon admission: 47-year-old female history of anxiety, depression, hyperlipidemia and GERD who presents to the ER with complaints of intentional ingestion and suicide. History is obtained from froylan. Reports roughly 2 hours prior to arrival he came to her house and found her altered and admitted that she took pills. She did this in an attempt to take the pain away from her divorce. Denies any other ingestions but is unsure exactly what she took. She took a cup full of all of her medications. No seizure-like activity. No vomiting. No chest pain or shortness of breath as well as abdominal pain here. Pt is a 47 yo, , female, recently broken up with fimelita, who presents for mood and depression with recent suicide attempt via overdose. Pt noted thoughts that she wants to end it....I just couldnt take it anymore, my fiance left me I was all alone. PT noted she is doing "much better now.....I need to get back on my medications they really helped." Pt noted that she is moving in with her brother and her son is helping her move. Pt noted she felt safe and comfortable on the unit. Pt was in agreement with treatment plan. Pt noted that she is doing better today. Pt noted she slept 8 hours last night. Pt noted her appetite is much better. Pt rated her depression a 3, on a scale of zero to ten with ten being the worst and zero being none. Pt rate her anxiety a 3, on the same scale. Pt denied any current visual or auditory hallucinations. Pt denied any thoughts to harm herself or anyone else. PT agreed to restart sertraline 50 mg PO QAM for mood/medication management of Major depressive D/O. Pt was educated on the risks benefits and side-effects of these medications including no medication, pt was in agreement. Pt deneid any hx of Hep C, HIV, TBIs or Seizures. No TD noted, AIMS=0 Tobacco: 1ppd Alcohol: Denies Street: Denies. Caffeine: 2-3 per day 1.Interval hx 2.Continue current medications 3.Review current labs 4.Pt had an opportunity to ask questions and discuss current treatment plan. 5.Supportive therapy was provided 6.Pt encouraged to consider group or individual therapy 7.Pt was in agreement with treatment plan. 8.Pt was educated on the risks benefits and side effects of current medications. 9. D.C SO status 10.start sertraline 50 mg PO QAM for mood. 11. Plan to transfer pt to once medically stable CC: I swallowed a bunch of pills since my fiance left me. Past Med Surg Social Fam HX - Past Medical History Medical history: arthritis, GERD, hyperlipidemia, other - Past Psychiatric History Psychiatric history: Reports: anxiety, depression Family psychiatric history: Yes Family History of Suicide: None - Social History Smoking Status: Current every day smoker Smokeless Tobacco Status: No Alcohol use: occasionally Drug use: none - Family History Mother Living Status: Hx Family Cardiac Disorders: Yes Medications & Allergies Atorvastatin [Lipitor] 40 mg PO HS 01/17/18 [History] Fenofibrate [Tricor] 54 mg PO DAILY 01/17/18 [History] HydrOXYzine 10 mg PO BID PRN 01/17/18 [History] Omeprazole [PriLOSEC] 40 mg PO DAILY 01/17/18 [History] Pantoprazole Sodium [Protonix] 40 mg PO BID 01/17/18 [History] Polyethylene Glycol 3350 [MiraLAX bowel prep] 17 gm PO DAILY PRN 01/17/18 [ History] Tizanidine HCl 4 mg PO BID PRN 01/17/18 [History] 3 Allergy/AdvReac Type Severity Reaction Status Date / Time No Known Allergies Allergy Verified 01/17/18 13:53 Review of Systems Constitutional: Denies: fever, chills, weakness, weight change Eyes: Denies: eye pain, vision change Ears, Nose, Throat: Denies: ear pain, throat pain, dental pain, hearing loss, congestion Cardiovascular: Denies: chest pain, palpitations, dyspnea on exertion Respiratory: Denies: cough, dyspnea, wheezes Gastrointestinal: Denies: abdominal pain, nausea, vomiting, diarrhea, constipation Genitourinary female: Denies: urgency, dysuria, frequency, abnormal menses, dyspareunia Musculoskeletal: Denies: joint swelling, joint pain Integumentary: Denies: rash, lesions, pruritus Neurological: Denies: headache, weakness, numbness, memory loss Psychiatric: Reports: depression, anxiety, abnormal sleep pattern, suicidal ideation Endocrine: Denies: fatigue, heat or cold intolerance Hematologic/Lymphatic: Denies: easy bruising, lymphadenopathy Allergic/Immunologic: Denies: urticaria, itchy eyes Psychiatry Exam - Constitutional Vitals: Temp Pulse Resp BP Pulse Ox 98.6 F 81 17 140/88 94 01/19/18 11:00 01/19/18 11:00 01/19/18 11:00 01/19/18 11:00 01/19/18 11:00 General appearance: age & developmentally appropriate, well-groomed, well- nourished - Musculoskeletal Gait: normal Station: relaxed Strength & Tone: normal for patient - Psychiatric Patient Orientation: Yes Person, Yes Time, Yes Place Level of alertness: Alert Behavior: calm, cooperative Psychomotor activity: Normal Eye Contact: Maintains Eye Contact Mood Description: Euthymic/stable, Depressed Affect description: congruent with mood, full range Speech Volume: Normal Speech pattern: normal rate, normal rhythm, normal tone, fluent, spontaneous Language & Vocabulary: consistent with education Thought Process: Linear, Goal Oriented Thought Content: No Suicidal ideation, No Homicidal ideation, No Overt delusions Perceptual Disturbances: No Auditory hallucinations, No Visual hallucinations Attention Span Ability: Capable of Focused Attention Memory Description: Grossly Intact Patient Reliability: Reliable Historian Fund of knowledge: Yes abstraction ability, Yes aware of current events Intelligence Estimate: Average Judgment: Limited Insight: Partial Results - Labs Labs: Laboratory Last Values WBC 7.4 K/mcL (4.3-11.1) 01/18/18 05:40 RBC 4.09 M/mcL (3.82-4.97) 01/18/18 05:40 Hgb 12.3 g/dL (11.5-15.4) D 01/18/18 05:40 Hct 37.4 % (35.3-44.9) 01/18/18 05:40 MCV 91.4 fL (83.0-100.0) 01/18/18 05:40 MCH 30.1 pg (28.0-33.3) 01/18/18 05:40 MCHC 32.9 g/dL (31.6-35.5) 01/18/18 05:40 RDW 12.5 % (11.5-14.5) 01/18/18 05:40 Plt Count 197 K/mcL (140-400) 01/18/18 05:40 MPV 10.6 fL (9.4-12.4) 01/18/18 05:40 Immature Gran % 0.5 % (0-4) 01/18/18 05:40 Seg Neutrophils % 60.7 % 01/18/18 05:40 Lymphocytes % 31.2 % 01/18/18 05:40 Monocytes % 6.1 % 01/18/18 05:40 Eosinophils % 1.1 % 01/18/18 05:40 Basophils % 0.4 % 01/18/18 05:40 Neutrophils # 4.5 K/mcL (1.6-8.9) 01/18/18 05:40 Lymphocytes # 2.3 K/mcL (0.6-4.6) 01/18/18 05:40 Monocytes # 0.5 K/mcL (0.0-1.3) 01/18/18 05:40 Eosinophils # 0.1 K/mcL (0.0-0.6) 01/18/18 05:40 Basophils # 0.0 K/mcL (0.0-0.2) 01/18/18 05:40 Sodium 142 mEq/L (136-145) 01/19/18 04:15 Potassium 3.9 mEq/L (3.5-5.1) 01/19/18 04:15 Chloride 113 mEq/L (98-107) H 01/19/18 04:15 Carbon Dioxide 26 mEq/L (23-29) 01/19/18 04:15 BUN 7 mg/dL (6-20) 01/19/18 04:15 Creatinine 0.73 mg/dL (0.60-1.20) 01/19/18 04:15 Est GFR ( Amer) > 60 (> 60) 01/19/18 04:15 Est GFR (Non-Af Amer) > 60 (> 60) 01/19/18 04:15 BUN/Creatinine Ratio 10 (6-26) 01/19/18 04:15 Glucose 93 mg/dL (70-105) 01/19/18 04:15 POC Glucose 127 mg/dL (70-99) H 01/17/18 16:57 Calculated Osmolality 292 (280-300) 01/19/18 04:15 Calcium 9.3 mg/dL (8.6-10.3) 01/19/18 04:15 Magnesium 2.0 mg/dL (1.6-2.6) 01/19/18 04:15 Iron 48 mcg/dL (50-170) L 01/17/18 18:15 Total Bilirubin 0.2 mg/dL (0.3-1.0) L 01/19/18 04:15 Direct Bilirubin 0.2 mg/dL (0.0-0.2) 01/17/18 12:58 Indirect Bilirubin 0.3 mg/dL (0.0-1.2) 01/17/18 12:58 AST 13 Units/L (13-39) 01/19/18 04:15 ALT 13 Units/L (7-52) 01/19/18 04:15 Alkaline Phosphatase 80 Units/L (34-104) 01/19/18 04:15 Ammonia 48 mcmol/L (16-53) 01/17/18 12:58 Serum Total Protein 6.5 g/dL (6.4-8.9) 01/19/18 04:15 Albumin 4.0 g/dL (3.5-5.7) 01/19/18 04:15 Globulin 2.5 g/dL (2.4-3.5) 01/19/18 04:15 Albumin/Globulin Ratio 1.6 (1.1-2.2) 01/19/18 04:15 TSH 2.081 mcIU/mL (0.340-5.600) 01/17/18 12:58 Urine Color Dark Yellow (Yellow) 01/17/18 13:34 Urine Clarity Cloudy (Clear) A 01/17/18 13:34 Urine pH 5.5 pH Units (5.0-8.0) 01/17/18 13:34 Ur Specific [place] 1.023 (1.010-1.025) 01/17/18 13:34 Urine Protein 100 mg/dL (Neg-Trace) H 01/17/18 13:34 Urine Glucose (UA) 250 mg/dL (Normal) H 01/17/18 13:34 Urine Ketones Trace mg/dL (Negative) H 01/17/18 13:34 Urine Blood Negative (Negative) 01/17/18 13:34 Urine Nitrite Negative (Negative) 01/17/18 13:34 Urine Bilirubin Small (Negative) H 01/17/18 13:34 Urine Urobilinogen Normal mg/dL (Normal) 01/17/18 13:34 Ur Leukocyte Esterase Trace (Negative) H 01/17/18 13:34 Urine Microscopic RBC 0-3 per hpf (0-3) 01/17/18 13:34 Urine Microscopic WBC 0-3 per hpf (0-3) 01/17/18 13:34 Urine Bacteria Few per hpf (None-Few) 01/17/18 13:34 Ur Culture Indicated? YES (NO) A 01/17/18 13:34 Urine Test Negative (Negative) 01/17/18 13:34 Salicylates < 2.5 mg/dL (15.0-30.0) L 01/17/18 12:58 Urine Opiates Screen Negative ng/mL (Yqaekp=880) 01/17/18 21:31 Acetaminophen < 10 mcg/mL (10-20) L 01/17/18 12:58 Ur Barbiturates Screen Negative ng/mL (Yksstq=307) 01/17/18 21:31 Ur Phencyclidine Scrn Negative ng/mL (Cutoff=25) 01/17/18 21:31 Ur Amphetamines Screen Negative ng/mL (Vuqxxr=0267) 01/17/18 21:31 U Benzodiazepines Scrn Negative ng/mL (Zcsvsn=653) 01/17/18 21:31 Urine Cocaine Screen Negative ng/mL (Cutoff= 300) 01/17/18 21:31 U Marijuana (THC) Screen Negative ng/mL (Cutoff = 50) 01/17/18 21:31 Ur Drug Screen Interp See Below 01/17/18 21:31 Ethyl Alcohol < 10 mg/dL (Less than 10) 01/17/18 12:58 Specimen Rejected Labelling 01/17/18 18:45 Consult Discharge Plan - Plan Referrals: NONE,PCP [Primary Care Provider] -
--- NOTE | 2018-01-19 16:35 | Electrocardiograph Report ---
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
--- NOTE | 2018-01-19 20:05 | Internal Med Progress Note ---
Hospitalist Progress Note - Encounter Date of Encounter: 01/19/18 Time of Encounter: 20:03 - Subjective Interval History: Patient seen and evaluated at bedside. Admits doing well, denies suicidal or homicidal ideation, no chest pain or irregular heart beat. Denies nausea, vomiting or abdominal pain. - Exam Vitals: Temp Pulse Resp BP Pulse Ox 98.4 F 84 17 134/72 95 01/19/18 19:45 01/19/18 19:45 01/19/18 19:45 01/19/18 19:45 01/19/18 19:45 Exam: General: Alert and oriented x3 Skin:Normal color, no rash, no lesions. HEENT:EOM, pupils equal, round and reactive. Cardiovascular:Normal S1 & S2, no rubs, murmurs or gallops. No JVD. Pulse regular. Lungs:Normal breath sounds, no wheezes or crackles. Abdomen:Soft, non-tender, no rigidity. Extremities:No deformity, no edema or tenderness, no joint swelling or clubbing. Neurological:Normal cognition and motor skills. - Assessment and Plan (1) Major depress dis, severe Current Visit: Yes Status: Acute Assessment and Plan: Patient denies suicidal or homicidal ideation Plan: - Psychiatry recommended Sertraline 50 PO daily - Patient will be transferred tomorrow to (2) Suicide attempt Current Visit: Yes Status: Acute Assessment and Plan: I swallowed a bunch of pills since my fiance left me. Plan: - Continue sitter at bed side (3) Bradycardia Current Visit: Yes Status: Resolved Assessment and Plan: Resolved Plan: - 24 hours telemetry monitoring DVT Prophylaxis: Heparing 5000 units SubQ Q12HR - Time Spent with Patient Total time spent is greater than 50% in coordination of care (as documented) at patient's floor/unit and/or counseling patient: Greater than 35 minutes Plan of Care Discussed with: patient Internal Medicine: Result - Labs CBC & Chem 7: 01/18/18 05:40 01/19/18 04:15 Labs: BMP 01/19/18 04:15 Sodium 142 Potassium 3.9 Chloride 113 H Carbon Dioxide 26 BUN 7 Creatinine 0.73 Glucose 93 Calcium 9.3 Liver Function 01/19/18 Range/Units 04:15 Total Bilirubin 0.2 L (0.3-1.0) mg/dL AST 13 (13-39) Units/L ALT 13 (7-52) Units/L Alkaline Phosphatase 80 (34-104) Units/L Albumin 4.0 (3.5-5.7) g/dL Consult Discharge Plan - Plan Referrals: NONE,PCP [Primary Care Provider] -
[2018-01-20] MEDS: *HR* Heparin 5,000 UNIT/ML VIAL SQ SCH (05:50)
[2018-01-20 08:23] VITALS: BP 123/81
[2018-01-20] MEDS: Nicotine 21 MG PATCH.TD24 TD SCH (08:39)
--- NOTE | 2018-01-20 14:59 | Discharge Summary ---
- NOTES TO OUTPATIENT PROVIDER Notes to Outpatient Provider: Outpatient psychiatric follow-up Orders not resulted at time of discharge: Pending orders 01/19/18 06:00 ECG 12 lead ECG [ECG] AM 0600 Date of Encounter: 01/20/18 Time of Encounter: 14:55 - Discharge Diagnosis (1) Major depress dis, severe Priority: Primary Status: Acute (2) Suicide attempt Priority: Secondary Status: Acute (3) Bradycardia Priority: Secondary Status: Resolved Hospital course: Ms. Gross is a 47 year old female with a past medical history significant for major depressive disorder who was admitted to the hospital following a suicide attempt after ingesting a bunch of pills. Patient found to be bradycardic and received calcium gluconate as per poison control recommendations. Bradycardia resolved. Patient evaluated by a psychiatrist who recommended to start the patient on Sertraline and 50 mg daily, also recommended to send the patient to inpatient psych. Patient evaluated today at bedside, denies homicidal or suicidal ideation. Patient medically stable cleared to be transferred - Time Spent with Patient Total time spent providing and/or coordinating discharge services: - Discharge Medications Home Medications: Atorvastatin [Lipitor] 40 mg PO HS 01/17/18 [History] Fenofibrate [Tricor] 54 mg PO DAILY 01/17/18 [History] HydrOXYzine 10 mg PO BID PRN 01/17/18 [History] Omeprazole [PriLOSEC] 40 mg PO DAILY 01/17/18 [History] Pantoprazole Sodium [Protonix] 40 mg PO BID 01/17/18 [History] Polyethylene Glycol 3350 [MiraLAX bowel prep] 17 gm PO DAILY PRN 01/17/18 [ History] Tizanidine HCl 4 mg PO BID PRN 01/17/18 [History] Nicotine Patch [Nicoderm] 21 mg TD DAILY patch.td24 01/20/18 [Rx] Sertraline [Zoloft] 50 mg PO DAILY tablet 01/20/18 [Rx] Allergies/Adverse Reactions: 3 Allergy/AdvReac Type Severity Reaction Status Date / Time No Known Allergies Allergy Verified 01/17/18 13:53 Date of admission: 01/17/18 15:33 Primary care physician: PCP NONE Consults: 01/18/18 13:07 Consult to Psychiatry [CONS] Routine Consulting Provider: Psych[facility] Reason consult: Other Other reason and/or additional details: suicide attempt Call Completed: Yes - Constitutional Vitals: Temp Pulse Resp BP Pulse Ox 98.3 F 76 18 123/81 95 01/20/18 08:22 01/20/18 08:22 01/20/18 08:22 01/20/18 08:22 01/20/18 08:22 General appearance: Present: A&O X 3 Exam: General: Alert and oriented Skin:Normal color, no rash, no lesions. HEENT:EOM, pupils equal, round and reactive. Cardiovascular:Normal S1 & S2, no rubs, murmurs or gallops. No JVD. Pulse regular. Lungs:Normal breath sounds, no wheezes or crackles. Abdomen:Soft, non-tender, no rigidity. Extremities:No deformity, no edema or tenderness, no joint swelling or clubbing. Neurological:Normal cognition and motor skills. Pulses:Carotid and radial pulses normal +2. Rest of the physical exam is non contributory - Patient Status Disposition: Transfer Psychiatric Hosp Condition: Good Functional capacity at discharge: independent ambulation Overall status at discharge: patient is back to baseline - Discharge Instructions Follow Up With: NONE,PCP [Primary Care Provider] - - Diet and Activity Activity: increase activity as tolerated Diet: advance to your usual diet
== END 2018-01-20 15:20 | disposition home or self-care (01) ==
LOC: EMEROOARM 11:50 → SUATTDRO 15:33 → ICNU 15:33 → INTOOBSV 15:33 → ICNU 16:59 → 3ANU 01-18 19:23
PROVIDERS: ADMIT Internal Medicine; ATTEND Internal Medicine